=== PATIENT | male | born 2000 | race Native Hawaiian/Other Pacific Islander ===

== ENCOUNTER 2022-07-28 15:19 | Emergency (ER) | payer OTHER ==
[~2022-07-28] VITALS: Ht 185.4 cm; Wt 91.6 kg
[2022-07-28 15:32] VITALS: BP 129/69; TEMP 98.9
== END 2022-07-28 16:19 ==
LOC: ED 15:19
PROC: 09C77ZZ Extirpation of Matter from Right Tympanic Membrane, Via Natural or Artificial Opening (ICD-10-PCS; principal; 2022-07-28)
DX: T16.1XXA Foreign body in right ear, initial encounter (principal); X58.XXXA Exposure to other specified factors, initial encounter; Y92.148 Other place in prison as the place of occurrence of the external cause
CPT/HCPCS: 99283